=== PATIENT | male | born 1935 | race Caucasian/White ===

== ENCOUNTER 2017-01-01 15:48 | Outpatient (CLI) | payer MEDICARE, OTHER | END 2017-01-01 15:49 | disposition critical access hospital (66) | LOC: EMS 15:48 | PROVIDERS: ATTEND Surgery | DX: R07.9 Chest pain, unspecified (principal) | CPT/HCPCS: A0425; A0427 ==

== ENCOUNTER 2017-01-01 16:18 | Inpatient (IN) | payer MEDICARE, OTHER ==
--- NOTE | 2017-01-01 16:39 | ED Physician Documentation ---
PD HPI CHEST PAIN - Stated complaint Stated Complaint: CP - Chief complaint Chief Complaint: Cardiac - History obtained from History obtained from: Patient - History of Present Illness Timing - onset: Other (With no known history of coronary disease but has had a stroke in the past. He had a negative stress test 2 years ago in [place] per him , they are snowbirds, spending the dalal here in the winter in [place]. He does not have a local physician. Today at approximately 230 he was working on his boat, putting canvas on it for the winter when he developed nonradiating substernal chest pressure with shortness of breath but no nausea or diaphoresis. This lasted for about an hour and went away on its own. He was hypertensive at home. He received aspirin by paramedics, but no other treatment in route, his EKG was nonischemic prior to arrival.) Review of Systems Ten Systems: 10 systems reviewed and negative Constitutional: denies: Fever, Chills Nose: denies: Rhinorrhea / runny nose, Congestion Throat: denies: Dental pain / toothache, Sore throat Cardiac: denies: Pedal edema, Calf pain Respiratory: denies: Cough, Hemoptysis, Wheezing PD PAST MEDICAL HISTORY - Past Medical History Past Medical History: Yes Neuro: CVA - Present Medications Home Medications: Ambulatory Orders Medication Instructions Recorded Confirmed Atenolol 25 mg pe PO DAILY 01/01/17 01/01/17 Bimatoprost [Lumigan] 1 drops EACHEYE DAILY 01/01/17 01/01/17 Doxazosin [Cardura] 8 mg PO DAILY 01/01/17 01/01/17 Hydrochlorothiazide 12.5 mg PO DAILY 01/01/17 01/01/17 Losartan [Cozaar] 25 mg PO DAILY 01/01/17 01/01/17 Meloxicam 15 mg PO DAILY 01/01/17 01/01/17 Timolol Maleate [Timoptic] 1 drops EACHEYE DAILY 01/01/17 01/01/17 amLODIPine [Norvasc] 10 mg PO DAILY 01/01/17 01/01/17 - Allergies Allergies/Adverse Reactions: Allergies Allergy/AdvReac Type Severity Reaction Status Date / Time No Known Drug Allergies Allergy Verified 01/01/17 16:36 - Living Situation Living Situation: reports: With spouse/s.o. Living Arrangement: reports: At home - Social History Does the pt smoke?: No Does the pt have substance abuse?: No - Family History Family history: reports: Non contributory PD ED PE NORMAL - Vitals Vital signs reviewed: Yes - General General: Alert and oriented X 3, No acute distress - HEENT HEENT: PERRL, EOMI - Neck Neck: Supple, no meningeal sign, No bony TTP - Cardiac Cardiac: RRR, No murmur - Respiratory Respiratory: No respiratory distress, Clear bilaterally - Abdomen Abdomen: Normal bowel sounds, Soft, Non tender - Back Back: No CVA TTP, No spinal TTP - Derm Derm: Normal color, Warm and dry - Extremities Extremities: No edema, No calf tenderness / cord - Neuro Neuro: Alert and oriented X 3, Normal speech - Psych Psych: Normal mood, Normal affect Results - Vitals Vitals: Vital Signs - 24 hr 01/01/17 01/01/17 16:31 17:32 Temperature 97.7 C H 36.5 C Heart Rate 59 L 63 Respiratory 18 16 Rate Blood Pressure 148/80 H 155/76 H O2 Saturation 97 96 Oxygen O2 Source Room air - EKG (time done) 1639 Rate: Rate (enter#) (60) Rhythm: NSR [place]: Normal Intervals: Prolonged ID Ischemia: Q waves (inferior) Computer interpretation: Agree with computer - Labs Labs: Laboratory Tests 01/01/17 01/01/17 01/01/17 16:35 16:35 16:35 WBC 6.2 RBC 4.99 Hgb 16.0 Hct 46.8 MCV 93.8 MCH 32.1 H MCHC 34.2 RDW 13.8 Plt Count 168 MPV 8.6 Neut # 4.7 Lymph # 0.7 L [place] # 0.6 Eos # 0.2 Baso # 0.0 Absolute Nucleated RBC 0.00 Nucleated RBCs 0.1 Sodium 139 Potassium 3.6 Chloride 104 Carbon Dioxide 26 Anion Gap 9.0 BUN 25 H Creatinine 1.0 Estimated GFR (MDRD) 72 L Glucose 103 H Calcium 9.1 Total Bilirubin 2.1 H AST 27 ALT 34 Alkaline Phosphatase 111 Troponin I < 0.04 Total Protein 7.7 Albumin 4.7 Globulin 3.0 Albumin/Globulin Ratio 1.6 Lipase 23 - Rads (name of study) 1v CXR Radiology: EMP read contemporaneously (normal) PD MEDICAL DECISION MAKING - ED course ED course: 81-year-old gentleman with a resolved episode of 1 hour of chest pain earlier today that was quite typical in nature which is concerning for new onset angina. He received aspirin prior to arrival and remained pain-free while in the emergency department with negative initial biomarkers. Given the high risk description of his chest pain I believe he should be observed and have a interval stress test. Called to the hospitalist for admission at 5:34 PM. Departure - Departure Disposition: ED Place in Observation Clinical Impression: Chest pain Qualifiers: Chest pain type: unspecified Qualified Code(s): R07.9 - Chest pain, unspecified Condition: Stable
[2017-01-01 16:48] LABS: BASOPHILS % (AUTO) 0.7 %; EOSINOPHILS # (AUTO) 0.2 10^3/uL (0.0-0.7); HCT - HEMATOCRIT 46.8 % (42.0-52.0); LYMPHOCYTES # (AUTO) 0.7 10^3/uL (1.5-3.5); LYMPHOCYTES % (AUTO) 11.8 %; MEAN CORPUSCULAR HEMOGLOBIN 32.1 pg (27.0-31.0); MEAN CORPUSCULAR HGB CONC 34.2 g/dL (32.0-36.0); MEAN CORPUSCULAR VOLUME 93.8 fL (80.0-94.0); MEAN PLATELET VOLUME 8.6 fL (7.4-11.4); MONOCYTES # (AUTO) 0.6 10^3/uL (0.0-1.0); MONOCYTES % (AUTO) 8.9 %; NEUTROPHILS # (AUTO) 4.7 10^3/uL (1.5-6.6); NEUTROPHILS % (AUTO) 75.6 %; NUCLEATED RED BLOOD CELLS AUTO 0.1 /100WBC; RED BLOOD COUNT 4.99 10^6/uL (4.70-6.10); RED CELL DISTRIBUTION WIDTH 13.8 % (12.0-15.0); UNCORRECTED WHITE BLOOD COUNT 6.2 x10^3/uL; WHITE BLOOD COUNT 6.2 x10^3/uL (4.8-10.8)
[2017-01-01 17:07] LABS: ALBUMIN/GLOBULIN RATIO 1.6 (1.0-2.2); BILIRUBIN,TOTAL 2.1 mg/dL (0.2-1.0); CALCIUM 9.1 mg/dL (8.5-10.3); POTASSIUM 3.6 mmol/L (3.5-5.0); TOTAL PROTEIN 7.7 g/dL (6.7-8.2)
--- NOTE | 2017-01-01 17:32 | XRAY Preliminary Report ---
Exam: XR Chest 1 View IMPRESSION: Normal single view chest. [facility] SITE ID: [id number]
[2017-01-01] MEDS ORDERED: METOPROLOL TARTRATE 50 MG TABLET PO STA (17:33)
--- NOTE | 2017-01-01 17:34 | XRAY Report ---
EXAM: CHEST RADIOGRAPHY EXAM DATE: 01/01/2017 05:05 PM. CLINICAL HISTORY: Chest pain. COMPARISON: 11/18/2010 chest x-ray. TECHNIQUE: 1 view. FINDINGS: Lungs/Pleura: No focal opacities evident. No pleural effusion. No pneumothorax. Mediastinum: Within exam limitations, cardiomediastinal contour is normal. Other: None. IMPRESSION: Normal single view chest. [facility] Referring Provider Line: [phone] SITE ID: [id number]
[2017-01-01] MEDS ORDERED: METOPROLOL TARTRATE 25 MG TABLET ONE (17:41)
[2017-01-01] MEDS ORDERED: ZOLPIDEM 5 MG TABLET PO PRN (20:28)
[2017-01-01] MEDS ORDERED: SODIUM CHLORIDE FLUSH 0.9% 10 ML SYRINGE IVP PRN (20:28)
[2017-01-01] MEDS ORDERED: ONDANSETRON 4 MG/2 ML VIAL IVP PRN (20:28)
[2017-01-01] MEDS ORDERED: IBUPROFEN 600 MG TABLET PO PRN (20:28)
[2017-01-01] MEDS ORDERED: HEPARIN 5,000 UNIT/ML VIAL SUBQ SCH (21:00)
--- NOTE | 2017-01-01 22:04 | HISTORY & PHYSICAL EXAMINATION ---
DATE OF ADMISSION: 01/01/2017 CHIEF COMPLAINT: Chest pain. HISTORY OF PRESENT ILLNESS: The patient is a pleasant 81-year-old white male with past medical history of remote cerebrovascular accident without residual deficit, with history of hypertension, taking atenolol, Norvasc, doxazosin, and diuretics including hydrochlorothiazide and losartan as well. He underwent bilateral knee replacements a couple of years ago; prior to that surgery, he had a negative stress test. He does not have cardiac history but reports having a benign cardiac murmur. He stays in [facility] with [place], [place], and he receives his primary care in [place]. He has an active lifestyle , walks daily about an hour. He had no chest pain or exertional symptoms in the past. Regarding the circumstances leading to admission, the patient did light physical activity outside earlier on admission day. Subsequently, he developed chest discomfort, which he described as it felt like he ran so hard that his lungs started to hurt. The intensity of the discomfort was 4/10. It lasted for about an hour, resolved after aspirin was given by ambulance. As mentioned, he has no history of coronary artery disease and no history of similar chest pain. Prior to calling to the ambulance, he checked his blood pressure, which was 190/ 100. That worried him, and given the high blood pressure and the chest pain, he felt concerned and this is why he called EMS. Upon presented to the ER, the patient was found bradycardic with a heart rate in the 50s. His blood pressure was 150/70. He saturated 99% on room air, and he was afebrile. ER workup included an EKG, which was with a heart rate of 60. It showed slightly prolonged CO interval at 225. There was poor R-wave progression , nonspecific changes. No acute ischemic sign. Chest x-ray was unremarkable. The BUN was 25. Creatinine was 1. Troponin was negative. During the ER stay, the patient no longer complained of chest pain. REVIEW OF SYSTEMS: Please see pertinent positive listed at history of present illness. The patient denied additional complaints; 12-point review was negative. FAMILY HISTORY: Positive for Marfan syndrome in the father and in a sister. Negative for coronary artery disease. SOCIAL HISTORY: The patient does not smoke. He has an active lifestyle, walks daily about an hour, walks unassisted. He drinks alcohol, a couple of alcoholic beverages with dinner. CODE STATUS: FULL CODE. PAST MEDICAL HISTORY 1. 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 No residual deficits. 2. Hypertension. 3. Osteoarthritis. 4. History of bilateral knee replacements. 5. History of cardiac murmur. 6. History of benign prostatic hypertrophy, status post 2 prostate surgeries. OUTPATIENT MEDICATIONS: Include 1. Hydrochlorothiazide. 2. Atenolol. 3. Meloxicam. 4. Doxazosin. 5. Amlodipine. 6. Losartan. 7. Timolol eyedrops. 8. Lumigan eyedrops. PHYSICAL EXAMINATION: VITAL SIGNS: Please see listed above at history of present illness. GENERAL: The patient is a well-developed male who was not in distress. CARDIOVASCULAR: S1, S2 regular rhythm. The rate is on the bradycardic side between 50 and 60. Soft systolic murmur best heard at the second parasternal auscultation point. Well perfused periphery. No lymphedema. RESPIRATORY: Clear lungs to auscultation bilaterally without wheezes or crackles. MUSCULOSKELETAL: Atraumatic, unremarkable. NEUROLOGIC: Alert, oriented, nonfocal. PSYCHIATRIC: Cooperative, pleasant to talk to. ABDOMEN: With a midline hernia. Bowel tones present. Benign. Nontender. SKIN: No rash. No jaundice. ASSESSMENT AND PLAN: Active issues/diagnoses 1. Acute chest pain, started on exertion. No prior history of chest pain or coronary artery disease; however, given the patient's age, history of prior stroke, history of hypertension, he does have moderate cardiac risk. 2. Bradycardia, on atenolol and doxazosin. Will need telemetry monitoring. EKG showed slightly prolonged CO. 3. History of cerebrovascular accident, currently not on secondary stroke protection. PLAN AND ORDERS 1. The patient is getting admitted under observation status. He is undergoing rapid cardiac rule out. We will repeat troponin in the morning, and if cardiac markers remain negative, we will schedule a pharmacologic stress test. Overnight , I will hold atenolol, given borderline bradycardia and monitor the patient on telemetry. 2. The patient might benefit from aspirin and statin for secondary stroke protection. We will check lipid panel in the morning. 3. Reconciled outpatient medications, will continue unchanged except holding atenolol. 4. We will check D-dimer for completeness. 5. Deep venous thrombosis prophylaxis. Time spent in the care of this patient was 60 minutes. JOB #: [id number] EXT JOB #:[id number] ELROY
[2017-01-01] MEDS: SODIUM CHLORIDE FLUSH 0.9% 10 ML SYRINGE IVP SCH (22:54)
[2017-01-02] MEDS: SODIUM CHLORIDE FLUSH 0.9% 10 ML SYRINGE IVP SCH ×2 (05:32→13:03)
[2017-01-02 06:36] LABS: CHOL/HDL RATIO 5.3 (<5.0); CHOLESTEROL 154 mg/dL; HDL CHOLESTEROL 29 mg/dL; LDL/HDL RATIO 3.2 (<3.6); TRIGLYCERIDES 160 mg/dL; VLDL CHOLESTEROL 32 mg/dL
[2017-01-02] MEDS ORDERED: HEPARIN 5,000 UNIT/ML VIAL IVP PRN (06:46)
[2017-01-02] MEDS ORDERED: HEPARIN 5,000 UNIT/ML VIAL IVP ONE (06:46)
[2017-01-02] MEDS ORDERED: CLOPIDOGREL 300 MG TABLET PO ONE (06:47)
[2017-01-02] MEDS ORDERED: HEPARIN 25,000 UNITS/500 ML 500 ML IV SCH (07:00)
[2017-01-02 08:58] LABS: INR 1.2 (0.8-1.2); PT - PROTHROMBIN TIME 13.6 secs (9.9-12.6)
[2017-01-02] MEDS ORDERED: amLODIPine 5 MG TABLET PO SCH (09:00)
[2017-01-02] MEDS ORDERED: TIMOLOL 0.25% OPHTH DROPS EACHEYE SCH (09:00)
[2017-01-02] MEDS ORDERED: DOXAZOSIN 4 MG TABLET PO SCH (09:00)
[2017-01-02] MEDS ORDERED: POLYETHYLENE GLYCOL 3350 17 GM PACKET PO SCH (09:00)
[2017-01-02] MEDS ORDERED: hydroCHLOROthiazide 12.5 MG CAPSULE PO SCH (09:00)
[2017-01-02] MEDS ORDERED: MELOXICAM 7.5 MG TABLET PO SCH (09:00)
[2017-01-02] MEDS ORDERED: ASPIRIN EC 325 MG TABLET PO SCH (09:00)
[2017-01-02] MEDS ORDERED: LOSARTAN 50 MG TABLET PO SCH (09:00)
[2017-01-02] MEDS ORDERED: ISOSORBIDE MONONITRATE ER 30 MG TABLET PO SCH (09:00)
[2017-01-02] MEDS ORDERED: BIMATOPROST 0.01% OPHTH DROPS 2.5 ML EACHEYE SCH (09:00)
[2017-01-02 09:56] LABS: HCT - HEMATOCRIT 45.5 % (42.0-52.0); HGB - HEMOGLOBIN 15.9 g/dL (14.0-18.0)
[2017-01-02] MEDS ORDERED: SODIUM CHLORIDE 0.9% 1,000 ML IV ONE ×2 (10:52→11:24)
[2017-01-02] MEDS ORDERED: SODIUM CHLORIDE 0.9% 500 ML IV ONE (11:07)
[2017-01-02 13:02] VITALS: BP 113/79
--- NOTE | 2017-01-06 01:37 | DISCHARGE SUMMARY ---
DATE OF ADMISSION: 01/01/2017 DATE OF DISCHARGE (TRANSFER TO [facility]) 01/02/2017 HISTORY OF PRESENT ILLNESS: This is a 81-year-old white male with a history of hyperlipidemia, hypertension, BPH, compliant with medications for these. The patient normally walks 1 mile a day for exercise. The patient remembers having had a stress test approximately 10 months ago for clearance for surgery. The patient presented with new onset of chest pressure which he rated 5/10 across the precordium without any associated symptoms which lasted for 1 hour while he was putting away his boat for the winter. He presented to the emergency room and had relief with sublingual nitroglycerin x1 and also received aspirin. He was placed in observation to rule out MA and on telemetry. HOSPITAL COURSE AND DISCHARGE DIAGNOSES: 1. Acute non-ST elevation MA. The patient's initial troponin was negative at less than 0.04 and then the second troponin increased to 2.62 and then had a decline at 2.04. The patient had no further chest pain on the medications that were started while here. His EKG initially showed presence of inferior Q-waves already and nonspecific lateral T-wave flattening. On repeat it was unchanged. He also had an Echo, which showed minimal posterior wall hypokinesis only and overall preserved LV ejection fraction. The patient was transferred to inpatient status and then on that next day also transferred to the facility with higher level of care for coronary angiography. The patient was kept on aspirin, IV heparin protocol, statin medication and nitrates. No Lovenox was used because of the need for coronary angiography as planned. No Plavix was used because of no knowledge of his coronary anatomy, and if bypass surgery was needed urgently the Plavix would need a 5-day hold on a surgical plan. 2. Bradycardia. This was noted at presentation and he therefore received no beta -blockers or any other heart rate slowing medications. On the day after admission, one hour after receiving his morning medications, he had drop in blood pressure to approx. 80/60 and drop in heart rate into the 40 range and became diaphoretic and nauseated without vomiting. This responded to wide open fluids. He did not require atropine or any other medication dosage. It was felt to be a vasovagal episode and his Cardura and Amlodipine were discontinued. 3. History of hypertension. His blood pressure actually was low during the entire admission and therefore he had the discontinuation of amlodipine and Cardura. No hydrochlorothiazide was used (on his home med list) and no beta blockers were started during his stay here. CONDITION AT TIME OF DISCHARGE: Stable. His skin at discharge was warm and dry. His blood pressure was 113/79 with a pulse of 62 and sinus rhythm. He was afebrile. His cardiopulmonary exam was unremarkable. FOLLOWUP: After his diagnostic angiography, cardiac followup will be determined by the ethanol operations manager at [facility]. Followup with his primary care doctor as well. JOB #: [id number] EXT JOB #:[id number] [email or web address]
== END 2017-01-02 14:58 | disposition short-term general hospital (02) | DRG 282 ==
LOC: EDUNIT# → ED 16:18 → OBS 20:28 → UNDOADMOB 20:28 → MS2 01-02 13:07 → OBSVTOIN 01-02 13:08 → UNDODISOB 01-02 14:58
PROVIDERS: ADMIT Internal Medicine; ATTEND Internal Medicine
DX: R07.2 Precordial pain (principal); Z86.73 Personal history of transient ischemic attack (TIA), and cerebral infarction without residual deficits; I21.4 Non-ST elevation (NSTEMI) myocardial infarction; Z96.653 Presence of artificial knee joint, bilateral; R00.1 Bradycardia, unspecified; I95.9 Hypotension, unspecified; R01.1 Cardiac murmur, unspecified; I10 Essential (primary) hypertension; E78.5 Hyperlipidemia, unspecified; N40.0 Benign prostatic hyperplasia without lower urinary tract symptoms
CPT/HCPCS: 36415; 71010; 80053; 80061; 82550; 82553; 83690; 84484; 85014; 85018; 85025; 85049; 85379; 85520; 85610; 93005; 93306; 96372; 99284; 99285

== ENCOUNTER 2017-01-08 20:20 | Emergency (ER) | payer MEDICARE, OTHER ==
[2017-01-08 21:23] LABS: UR CULTURE IF IND NOT INDICATED; WBC,URINE 0-3 /HPF (0-3)
[2017-01-08 21:54] LABS: BASOPHILS # (AUTO) 0.1 10^3/uL (0.0-0.1); BASOPHILS % (AUTO) 0.9 %; EOSINOPHILS # (AUTO) 0.2 10^3/uL (0.0-0.7); EOSINOPHILS % (AUTO) 2.7 %; HCT - HEMATOCRIT 42.6 % (42.0-52.0); HGB - HEMOGLOBIN 14.6 g/dL (14.0-18.0); LYMPHOCYTES # (AUTO) 0.9 10^3/uL (1.5-3.5); LYMPHOCYTES % (AUTO) 16.4 %; MEAN CORPUSCULAR HEMOGLOBIN 32.5 pg (27.0-31.0); MEAN CORPUSCULAR HGB CONC 34.4 g/dL (32.0-36.0); MEAN CORPUSCULAR VOLUME 94.5 fL (80.0-94.0); MEAN PLATELET VOLUME 7.8 fL (7.4-11.4); MONOCYTES # (AUTO) 0.5 10^3/uL (0.0-1.0); NEUTROPHILS # (AUTO) 4.1 10^3/uL (1.5-6.6); NUCLEATED RED BLOOD CELLS AUTO 0.1 /100WBC; RED CELL DISTRIBUTION WIDTH 13.4 % (12.0-15.0); UNCORRECTED WHITE BLOOD COUNT 5.8 x10^3/uL; WHITE BLOOD COUNT 5.8 x10^3/uL (4.8-10.8)
[2017-01-08 22:06] LABS: ALBUMIN/GLOBULIN RATIO 1.2 (1.0-2.2); BILIRUBIN,TOTAL 1.4 mg/dL (0.2-1.0); CALCIUM 9.2 mg/dL (8.5-10.3); POTASSIUM 3.4 mmol/L (3.5-5.0); TOTAL PROTEIN 7.8 g/dL (6.7-8.2)
[2017-01-08 22:08] LABS: INR 1.2 (0.8-1.2); PT - PROTHROMBIN TIME 13.5 secs (9.9-12.6)
[2017-01-08 22:15] LABS: PARTIAL THROMBOPLASTIN TIME 27.7 secs (24.9-33.3)
--- NOTE | 2017-01-08 22:32 | ED Physician Documentation ---
PD HPI MALE - Stated complaint Stated Complaint: MALE - Chief complaint Chief Complaint: Abd Pain - History obtained from History obtained from: Patient - History of Present Illness Timing - onset: How many days ago (1-2 days of some dysuria and then noted hematuria today, with some clots. Was having some difficulty voiding earlier but then passed large clot and feels he is emptying now.) Timing - duration: Days Timing - details: Gradual onset, Still present Associated symptoms: Dysuria, Urinary frequency, Hematuria. No: Genital sore / lesion, Back pain Similar symptoms before: Diagnosis (due to infections in the past) Recently seen: Emergency Dept, Admitted (had chest pain and was Dx with AR and had heart stent placed 6 days ago, on ASA and Plavix. Not having any chest pain since.) Review of Systems Constitutional: denies: Fever, Chills Cardiac: denies: Chest pain / pressure, Palpitations Respiratory: denies: Dyspnea, Cough : reports: Dysuria, Frequency, Hematuria. denies: Discharge Skin: denies: Rash, Lesions Endocrine: reports: Easy bruising / bleeding (since having heart stent placed 6 days ago, and is on Plavix and ASA since then. New meds.) PD PAST MEDICAL HISTORY - Past Medical History Cardiovascular: AR Respiratory: None Neuro: CVA Endocrine/Autoimmune: None GI: None : None HEENT: Chronic vision loss, Chronic hearing loss Psych: None Musculoskeletal: None Derm: None - Past Surgical History General: Appendectomy Ortho: Knee replacement, Other - Present Medications Home Medications: Ambulatory Orders Medication Instructions Recorded Confirmed Atenolol 25 mg pe PO DAILY 01/01/17 01/01/17 Bimatoprost [Lumigan] 1 drops EACHEYE DAILY 01/01/17 01/01/17 Doxazosin [Cardura] 8 mg PO DAILY 01/01/17 01/01/17 Hydrochlorothiazide 12.5 mg PO DAILY 01/01/17 01/01/17 Losartan [Cozaar] 25 mg PO DAILY 01/01/17 01/01/17 Meloxicam 15 mg PO DAILY 01/01/17 01/01/17 Timolol Maleate [Timoptic] 1 drops EACHEYE DAILY 01/01/17 01/01/17 amLODIPine [Norvasc] 10 mg PO DAILY 01/01/17 01/01/17 Phenazopyridine [Pyridium] 200 mg PO TID PRN #15 tablet 01/08/17 Sulfamethox/Trimeth 800/160 1 each PO BID #14 tablet 01/08/17 [Bactrim Ds 800/160] - Allergies Allergies/Adverse Reactions: Allergies Allergy/AdvReac Type Severity Reaction Status Date / Time No Known Drug Allergies Allergy Verified 01/01/17 16:36 - Social History Does the pt smoke?: No Smoking Status: Never smoker Does the pt have substance abuse?: No PD ED PE NORMAL - Vitals Vital signs reviewed: Yes - General General: Alert and oriented X 3, No acute distress, Well developed/nourished - Neck Neck: Supple, no meningeal sign, No adenopathy - Cardiac Cardiac: RRR, No murmur - Respiratory Respiratory: Clear bilaterally - Abdomen Abdomen: Soft, Non tender - Male Male : Deferred - Back Back: No CVA TTP - Derm Derm: Normal color, Warm and dry - Extremities Extremities: Other (right forearm with superficial bruising. ) - Neuro Neuro: Alert and oriented X 3, No motor deficit, Normal speech Results - Vitals Vitals: Vital Signs - 24 hr 01/08/17 01/08/17 20:25 23:28 Temperature 36.4 C L Heart Rate 96 78 Respiratory 18 16 Rate Blood Pressure 135/78 H 138/83 H O2 Saturation 99 96 Oxygen O2 Source Room air - Labs Labs: Laboratory Tests 01/08/17 01/08/17 01/08/17 21:00 21:45 21:45 WBC 5.8 RBC 4.50 L Hgb 14.6 Hct 42.6 MCV 94.5 H MCH 32.5 H MCHC 34.4 RDW 13.4 Plt Count 189 MPV 7.8 Neut # 4.1 Lymph # 0.9 L [place] # 0.5 Eos # 0.2 Baso # 0.1 Absolute Nucleated RBC 0.01 Nucleated RBCs 0.1 PT 13.5 H INR 1.2 APTT 27.7 Sodium Potassium Chloride Carbon Dioxide Anion Gap BUN Creatinine Estimated GFR (MDRD) Glucose Calcium Total Bilirubin AST ALT Alkaline Phosphatase Total Protein Albumin Globulin Albumin/Globulin Ratio Lipase Urine Color RED/BLOODY Urine Clarity BLOODY Urine pH Ur Specific [place] Urine Protein Urine Glucose (UA) Urine Ketones Urine Occult Blood Urine Nitrite Urine Bilirubin Urine Urobilinogen Ur Leukocyte Esterase Urine RBC TNTC H Urine WBC 0-3 Ur Squamous Epith Cells NONE SEEN Urine Bacteria None Seen Urine Culture Comments NOT INDICATED 01/08/17 21:45 WBC RBC Hgb Hct MCV MCH MCHC RDW Plt Count MPV Neut # Lymph # [place] # Eos # Baso # Absolute Nucleated RBC Nucleated RBCs PT INR APTT Sodium 140 Potassium 3.4 L Chloride 108 Carbon Dioxide 22 Anion Gap 10.0 BUN 22 H Creatinine 1.0 Estimated GFR (MDRD) 72 L Glucose 117 H Calcium 9.2 Total Bilirubin 1.4 H AST 26 ALT 29 Alkaline Phosphatase 126 H Total Protein 7.8 Albumin 4.2 Globulin 3.6 Albumin/Globulin Ratio 1.2 Lipase 34 Urine Color Urine Clarity Urine pH Ur Specific [place] Urine Protein Urine Glucose (UA) Urine Ketones Urine Occult Blood Urine Nitrite Urine Bilirubin Urine Urobilinogen Ur Leukocyte Esterase Urine RBC Urine WBC Ur Squamous Epith Cells Urine Bacteria Urine Culture Comments PD MEDICAL DECISION MAKING - ED course Complexity details: considered differential (he is having burning with urination the past 1-2 days and now hematuria. Even though UA is not indicative for UTI at this time, would still treat as possible. He has done self-caths in the past, post TURP, so he was sent home with self cath items should he get feeling of retention, to try that. Otherwise return if retention; check with PCP /Urology if hematuria not better in 1-2 days otherwise. Presume to follow up with Urology and might need cystoscopy if persistent (has not had any polyps, tumors, etc in the past, with last TURP just a year ago or so). ), d/w patient Departure - Departure Disposition: 01 Home, Self Care Clinical Impression: Dysuria Hematuria Qualifiers: Hematuria type: gross Qualified Code(s): R31.0 - Gross hematuria Condition: Stable Record reviewed to determine appropriate education?: Yes Instructions: ED Hematuria Prescriptions: Sulfamethox/Trimeth 800/160 [Bactrim Ds 800/160] 1 each PO BID #14 tablet Phenazopyridine [Pyridium] 200 mg PO TID PRN #15 tablet PRN Reason: Pain Comments: Infection will be a common cause of the hematuria. Recheck if not improved over the next couple of days. However there could be other concerns such as polyps or broken blood vessels. Certainly the recent antiplatelet medication does not help. However continue those given the recent numbness of your stents. If you do have a feeling of unable to urinate, he could try self cathing (since you have experience with that in the past). If you are still having troubles with unable to urinate, return to the ER for [place] and irrigation. If there is still some blood in the urine after couple of days or even just for double check, contact your urologist for further evaluation. Discharge Date/Time: 01/08/17 23:29
[2017-01-08] MEDS ORDERED: SULFAMETH/TRIMETH DS 800/160 MG TABLET PO STA (23:08)
[2017-01-08] MEDS ORDERED: SULFAMETH/TRIMETH DS 800/160 MG TABLET PO ONE (23:19)
[2017-01-08 23:29] VITALS: BP 138/83
== END 2017-01-08 23:29 | disposition home or self-care (01) ==
LOC: ED 20:20
DX: R30.0 Dysuria (principal); R31.0 Gross hematuria; Z86.73 Personal history of transient ischemic attack (TIA), and cerebral infarction without residual deficits; Z96.659 Presence of unspecified artificial knee joint
CPT/HCPCS: 36415; 51798; 80053; 81001; 83690; 85025; 85610; 85730; 99283; 99284; A9270; 87086

== ENCOUNTER 2017-01-11 20:09 | Outpatient (CLI) | payer MEDICARE, OTHER | END 2017-01-11 20:10 | disposition EMS.NT | LOC: EMS 20:09 | PROVIDERS: ATTEND Surgery | DX: R39.9 Unspecified symptoms and signs involving the genitourinary system (principal) ==

== ENCOUNTER 2017-01-11 21:04 | Emergency (ER) | payer MEDICARE, OTHER ==
--- NOTE | 2017-01-11 22:14 | ED Physician Documentation ---
PD HPI MALE - Stated complaint Stated Complaint: MALE - Chief complaint Chief Complaint: Abd Pain - History obtained from History obtained from: Patient - History of Present Illness Timing - onset: Today (he had hematuria with clots few days ago and was able to void still. Treated for possible UTI and says the bleeding stopped next day and was good for couple days, and now with hematuria again, without clots. Has feeling of urgency and frequency.) Timing - details: Gradual onset, Waxing and waning Associated symptoms: Dysuria, Urinary frequency, Hematuria. No: Genital sore / lesion, Testiclar pain Similar symptoms before: Diagnosis (possible UTI) Recently seen: Emergency Dept Review of Systems Constitutional: denies: Fever, Chills GI: denies: Abdominal Pain, Nausea, Vomiting, Diarrhea : reports: Dysuria, Frequency. denies: Discharge Skin: denies: Rash, Lesions PD PAST MEDICAL HISTORY - Past Medical History Cardiovascular: [place] Respiratory: None Neuro: CVA Endocrine/Autoimmune: None GI: None : None HEENT: Chronic vision loss, Chronic hearing loss Psych: None Musculoskeletal: None Derm: None - Past Surgical History General: Appendectomy Ortho: Knee replacement, Other - Present Medications Home Medications: Ambulatory Orders Medication Instructions Recorded Confirmed Atenolol 25 mg pe PO DAILY 01/01/17 01/01/17 Bimatoprost [Lumigan] 1 drops EACHEYE DAILY 01/01/17 01/01/17 Doxazosin [Cardura] 8 mg PO DAILY 01/01/17 01/01/17 Hydrochlorothiazide 12.5 mg PO DAILY 01/01/17 01/01/17 Losartan [Cozaar] 25 mg PO DAILY 01/01/17 01/01/17 Meloxicam 15 mg PO DAILY 01/01/17 01/01/17 Timolol Maleate [Timoptic] 1 drops EACHEYE DAILY 01/01/17 01/01/17 amLODIPine [Norvasc] 10 mg PO DAILY 01/01/17 01/01/17 Phenazopyridine [Pyridium] 200 mg PO TID PRN #15 tablet 01/08/17 Sulfamethox/Trimeth 800/160 1 each PO BID #14 tablet 01/08/17 [Bactrim Ds 800/160] Cephalexin [Keflex] 500 mg PO TID #21 capsule 09/23/17 - Allergies Allergies/Adverse Reactions: Allergies Allergy/AdvReac Type Severity Reaction Status Date / Time No Known Drug Allergies Allergy Verified 01/11/17 21:31 - Social History Does the pt smoke?: No Smoking Status: Never smoker Does the pt drink ETOH?: Yes Does the pt have substance abuse?: No PD ED PE NORMAL - Vitals Vital signs reviewed: Yes - General General: Alert and oriented X 3, No acute distress, Well developed/nourished - Abdomen Abdomen: Soft, Non tender - Male Male : Other (no external sores/rash.) - Rectal Rectal: Deferred Results - Vitals Vitals: Vital Signs - 24 hr 01/11/17 01/11/17 21:31 23:15 Temperature 36.9 C 36.7 C Heart Rate 87 90 Respiratory 18 16 Rate Blood Pressure 114/66 139/74 H O2 Saturation 96 99 Oxygen O2 Source Room air - Labs Labs: Laboratory Tests 01/11/17 22:45 Urine Color RED/BLOODY Urine Clarity TURBID Urine pH 6.5 Ur Specific [place] 1.020 Urine Protein >=300 Urine Glucose (UA) NEGATIVE Urine Ketones NEGATIVE Urine Occult Blood LARGE H Urine Nitrite POSITIVE H Urine Bilirubin NEGATIVE Urine Urobilinogen 0.2 (NORMAL) Ur Leukocyte Esterase NEGATIVE Urine RBC TNTC H Urine WBC 0-3 Ur Squamous Epith Cells RARE Squamous Urine Bacteria Rare Ur Microscopic Review INDICATED Urine Culture Comments INDICATED PD MEDICAL DECISION MAKING - ED course Complexity details: considered differential (has actual Nitrates and bacterial seen on UA now. So presume the current abx not working. He does not have much post void residual so is not having obstruction. ), d/w patient Departure - Departure Disposition: 01 Home, Self Care Clinical Impression: Hematuria Qualifiers: Hematuria type: gross Qualified Code(s): R31.0 - Gross hematuria Urinary tract infection Qualifiers: Urinary tract infection type: acute cystitis Hematuria presence: with hematuria Qualified Code(s): N30.01 - Acute cystitis with hematuria Condition: Stable Record reviewed to determine appropriate education?: Yes Instructions: ED UTI Cystitis Male Prescriptions: Cephalexin [Keflex] 500 mg PO TID #21 capsule Comments: Your urine test shows the lot of course but also now is showing signs of infection despite having been on the antibiotic for a few days. We would switch antibiotics to cephalexin so he can stop the prior one. Drink lots of fluids. The bladder scanner does not show leftover urine so it does look like your emptying adequately. Recheck if not improved over the next couple of days. Follow-up with urologist in the next week or 2 even if you are feeling better just for further opinion. Discharge Date/Time: 01/11/17 23:22
[2017-01-11 22:58] LABS: PH,URINE 6.5 PH (5.0-7.5)
[2017-01-11 23:03] LABS: BILIRUBIN,URINE NEGATIVE (NEGATIVE); UA w/ MICROSCOPIC CHARGE YES
[2017-01-11 23:04] LABS: UR CULTURE IF IND INDICATED; WBC,URINE 0-3 /HPF (0-3)
[2017-01-11] MEDS ORDERED: CEPHALEXIN 250 MG CAPSULE PO STA (23:09)
[2017-01-11] MEDS ORDERED: CEPHALEXIN 250 MG CAPSULE PO ONE (23:16)
[2017-01-11 23:17] VITALS: BP 139/74
== END 2017-01-11 23:22 | disposition home or self-care (01) ==
LOC: ED 21:04
DX: N30.01 Acute cystitis with hematuria (principal); I25.2 Old myocardial infarction; Z86.73 Personal history of transient ischemic attack (TIA), and cerebral infarction without residual deficits; Z96.659 Presence of unspecified artificial knee joint
CPT/HCPCS: 51798; 81001; 87086; 99283; A9270; 81003

== ENCOUNTER 2017-01-12 19:15 | Emergency (ER) | payer MEDICARE, OTHER ==
--- NOTE | 2017-01-12 20:31 | ED Physician Documentation ---
PD HPI MALE - Stated complaint Stated Complaint: MALE - Chief complaint Chief Complaint: General - History obtained from History obtained from: Patient - History of Present Illness Timing - duration: Days Timing - details: Intermittant Associated symptoms: Dysuria, Urinary frequency, Hematuria Recently seen: Emergency Dept (see recent notes.) Review of Systems Constitutional: denies: Fever, Chills GI: denies: Nausea, Vomiting, Diarrhea : reports: Dysuria, Frequency, Hematuria PD PAST MEDICAL HISTORY - Past Medical History Past Medical History: Yes Cardiovascular: [place] Respiratory: None Neuro: CVA Endocrine/Autoimmune: None GI: None : None HEENT: Chronic vision loss, Chronic hearing loss Psych: None Musculoskeletal: None Derm: None - Past Surgical History Past Surgical History: Yes General: Appendectomy Ortho: Knee replacement, Other - Present Medications Home Medications: Ambulatory Orders Medication Instructions Recorded Confirmed Atenolol 25 mg pe PO DAILY 01/01/17 01/12/17 Bimatoprost [Lumigan] 1 drops EACHEYE DAILY 01/01/17 01/12/17 Doxazosin [Cardura] 8 mg PO DAILY 01/01/17 01/12/17 Hydrochlorothiazide 12.5 mg PO DAILY 01/01/17 01/12/17 Losartan [Cozaar] 25 mg PO DAILY 01/01/17 01/12/17 Meloxicam 15 mg PO DAILY 01/01/17 01/12/17 Timolol Maleate [Timoptic] 1 drops EACHEYE DAILY 01/01/17 01/12/17 amLODIPine [Norvasc] 10 mg PO DAILY 01/01/17 01/12/17 Phenazopyridine [Pyridium] 200 mg PO TID PRN #15 tablet 01/08/17 01/12/17 Cephalexin [Keflex] 500 mg PO TID #21 capsule 01/11/17 01/12/17 - Allergies Allergies/Adverse Reactions: Allergies Allergy/AdvReac Type Severity Reaction Status Date / Time No Known Drug Allergies Allergy Verified 01/12/17 19:39 - Social History Does the pt smoke?: No Smoking Status: Never smoker Does the pt drink ETOH?: Yes Does the pt have substance abuse?: No - Immunizations Immunizations are current?: Yes - POLST Patient has POLST: No PD ED PE NORMAL - Vitals Vital signs reviewed: Yes - General General: Alert and oriented X 3, No acute distress, Well developed/nourished - Abdomen Abdomen: Soft, Non tender - Male Male : Other (no external sores. Meatus appears normal. Gross hematuria on urine sample. ) - Rectal Rectal: Deferred - Back Back: No CVA TTP Results - Vitals Vitals: Oxygen O2 Source Room air - Labs Labs: Laboratory Tests 01/12/17 20:28 WBC 6.9 RBC 4.21 L Hgb 13.4 L Hct 39.8 L MCV 94.5 H MCH 31.8 H MCHC 33.7 RDW 13.0 Plt Count 240 MPV 7.6 Neut # 5.4 Lymph # 0.8 L [place] # 0.5 Eos # 0.1 Baso # 0.1 Absolute Nucleated RBC 0.00 Nucleated RBCs 0.0 PD MEDICAL DECISION MAKING - ED course Complexity details: reviewed old records, reviewed results (had had hematuria, improved on its own or with abx (did not have obvious UTI), but then bleeding again and had nitrates and bacteria on repeat UA after 3 days of abx, so changed abx from Bactrim to Keflex. Only started that yesterday. Has had persistent and worse hematuria, now thicker. Some retention at times. Did self cath at home and got 300 ml out twice. Feels continual staples would be better. He is still wanting to get back to [place] on Friday and see Urology there. ), re- evaluated patient (nurse put in normal staples initially and it is not draining well, with some clots. Larger one put in (20) and is doing okay and bladder irrigated by nursing with clots out. Draining okay after that. ), considered differential, d/w patient Departure - Departure Disposition: Home, Self Care Clinical Impression: Urinary retention Hematuria Qualifiers: Hematuria type: gross Qualified Code(s): R31.0 - Gross hematuria Condition: Stable Record reviewed to determine appropriate education?: Yes Follow-Up: [facility] [Provider Group] Comments: Continue current medications. Drink lots of fluids. Leave the Staples catheter in for draining better. Consider trying to see urology here in would be area before returning to [place]. Otherwise follow-up in [place] when you return. Discharge Date/Time: 01/12/17 22:57
[2017-01-12 20:34] LABS: BASOPHILS # (AUTO) 0.1 10^3/uL (0.0-0.1); BASOPHILS % (AUTO) 0.7 %; EOSINOPHILS # (AUTO) 0.1 10^3/uL (0.0-0.7); HCT - HEMATOCRIT 39.8 % (42.0-52.0); HGB - HEMOGLOBIN 13.4 g/dL (14.0-18.0); LYMPHOCYTES # (AUTO) 0.8 10^3/uL (1.5-3.5); LYMPHOCYTES % (AUTO) 11.9 %; MEAN CORPUSCULAR HEMOGLOBIN 31.8 pg (27.0-31.0); MEAN CORPUSCULAR HGB CONC 33.7 g/dL (32.0-36.0); MEAN CORPUSCULAR VOLUME 94.5 fL (80.0-94.0); MEAN PLATELET VOLUME 7.6 fL (7.4-11.4); MONOCYTES # (AUTO) 0.5 10^3/uL (0.0-1.0); MONOCYTES % (AUTO) 7.7 %; NEUTROPHILS # (AUTO) 5.4 10^3/uL (1.5-6.6); NEUTROPHILS % (AUTO) 77.7 %; RED BLOOD COUNT 4.21 10^6/uL (4.70-6.10); UNCORRECTED WHITE BLOOD COUNT 6.9 x10^3/uL; WHITE BLOOD COUNT 6.9 x10^3/uL (4.8-10.8)
[2017-01-12 22:58] VITALS: BP 126/82
== END 2017-01-12 22:57 | disposition home or self-care (01) ==
LOC: ED 19:15
DX: R33.9 Retention of urine, unspecified (principal); R31.0 Gross hematuria; I25.2 Old myocardial infarction; Z86.73 Personal history of transient ischemic attack (TIA), and cerebral infarction without residual deficits
CPT/HCPCS: 36415; 51700; 51702; 51798; 85025; 99283